=== PATIENT | male | born 1980 | race Caucasian/White ===

== ENCOUNTER 2023-03-22 12:21 | Inpatient (IN) ==
[2023-03-22] MEDS ORDERED: Al Hydrox/Mg Hydrox/Simet LIQ 30 ML UDC PO PRN (13:31)
[2023-03-23 08:32] LABS: HDL Cholesterol 44.8 mg/dL
[2023-03-23] MEDS: Vitamin THERAPEUTIC TAB PO SCH (09:31)
[2023-03-23] MEDS ORDERED: Influenza vaccine *QUAD* *2023-24* 0.5 ML SYRINGE IM ONE (15:00)
[2023-03-24] MEDS: Vitamin THERAPEUTIC TAB PO SCH (09:21)
[2023-03-25] MEDS: Vitamin THERAPEUTIC TAB PO SCH (09:59)
[2023-03-26] MEDS: Vitamin THERAPEUTIC TAB PO SCH (09:16)
[2023-03-27] MEDS: Vitamin THERAPEUTIC TAB PO SCH (10:46)
== END 2023-03-27 13:54 | disposition home or self-care (01) | DRG 897 ==
LOC: BSU 13:35
PROVIDERS: ADMIT Psychiatry & Neurology Psychiatry; ATTEND Psychiatry & Neurology Psychiatry